=== PATIENT | female | born 1945 | race Caucasian/White ===

== ENCOUNTER 2023-12-28 09:47 | Outpatient (RCR) | payer MEDICARE, OTHER, SELFPAY | END 2023-12-28 23:59 | disposition home or self-care (01) | LOC: RPT 09:47 | PROVIDERS: ATTENDING PHYSICIAN Specialist; FAMILY PHYSICIAN Internal Medicine | DX: Z47.1 Aftercare following joint replacement surgery (principal); Z96.652 Presence of left artificial knee joint; Z73.6 Limitation of activities due to disability | CPT/HCPCS: 97110; 97112; 97140; 97162 ==

== ENCOUNTER 2024-01-13 09:54 | Outpatient (RCR) | payer MEDICARE, OTHER, SELFPAY | END 2024-01-13 23:59 | disposition home or self-care (01) | LOC: RPT 09:54 | PROVIDERS: ATTENDING PHYSICIAN Specialist; FAMILY PHYSICIAN Internal Medicine | DX: Z47.1 Aftercare following joint replacement surgery (principal); Z96.652 Presence of left artificial knee joint; Z73.6 Limitation of activities due to disability | CPT/HCPCS: 97110; 97112 ==

== ENCOUNTER → 2024-02-17 10:46 | Outpatient (REF) | payer MEDICARE, OTHER, SELFPAY ==
[2024-02-17 12:39] LABS: ALT (SGPT) 16 U/L (0-35); AST (SGOT) 32 U/L (14-36); Albumin 4.5 g/dl (3.5-5.0); Alkaline Phosphatase 119 U/L (38-126); Blood Urea Nitrogen 26 mg/dl (7-17); Calcium 9.5 mg/dl (8.4-10.2); Carbon Dioxide 25 mmol/L (22-30); Chloride 101 mmol/L (98-107); Glucose 87 mg/dl (70-99); Potassium 4.4 mmol/L (3.5-5.1); Sodium 137 mmol/L (135-145); Total Bilirubin 0.6 mg/dl (0.2-1.3); Total Protein 7.2 g/dl (6.3-8.2); eGFR > 60.00
[2024-02-17 12:55] LABS: Vitamin D, 25-OH*** 63.3 ng/mL (30-80)
== END ==
LOC: RAD 10:46
PROVIDERS: ATTENDING PHYSICIAN Internal Medicine; FAMILY PHYSICIAN Internal Medicine
DX: M81.0 Age-related osteoporosis without current pathological fracture (principal); E55.9 Vitamin D deficiency, unspecified
CPT/HCPCS: 36415; 77080; 80053; 82306

== ENCOUNTER 2024-07-23 15:44 | Inpatient (IN) | payer MEDICARE, OTHER, SELFPAY ==
[2024-07-23] VITALS (7 sets, daily range): BP systolic 107–166; BP diastolic 62–108; BMI 25.0
[2024-07-23 13:16] LABS: % Basophils 0.5 % (0-2); % Eosinophils 0.6 % (0-6); % Immature Granulocytes 0.5 % (0-0.5); % Monocytes 7.1 % (1.7-9.3); % Neutrophils 75.3 % (42.2-75.2); Absolute Basophils 0.1 10^3/uL (0-0.2); Absolute Eosinophils 0.1 10^3/uL (0-0.7); Absolute Immature Granulocytes 0.1 10^3/uL (0-0.05); Absolute Lymphocytes 1.5 10^3/uL (1.2-3.4); Absolute Monocytes 0.7 10^3/uL (0.1-0.6); Absolute Neutrophils 7.2 10^3/uL (1.4-6.5); Hematocrit 34.1 % (37.0-47.0); Hemoglobin 11.1 g/dL (12.0-16.0); Mean Corp Hgb Conc. 32.6 g/dL (33.0-37.0); Mean Corpuscular Volume 85.9 fL (81.0-99.0); Mean Platelet Volume 10.2 fL (7.4-10.4); Nucleated Red Blood Cells % 0 %; Platelet Count 247 10^3/uL (130-400); Red Blood Cell Count 3.97 10^6/uL (4.20-5.40); Red Cell Dist. Width 13.4 % (11.5-14.5); White Blood Cell Count 9.5 10^3/uL (4.8-10.8)
[2024-07-23 13:43] LABS: ALT (SGPT) 18 U/L (0-35); AST (SGOT) 29 U/L (14-36); Albumin 4.5 g/dl (3.5-5.0); Alkaline Phosphatase 108 U/L (38-126); Blood Urea Nitrogen 35 mg/dl (7-17); Calcium 9.4 mg/dl (8.4-10.2); Carbon Dioxide 22 mmol/L (22-30); Chloride 105 mmol/L (98-107); Glucose 117 mg/dl (70-99); Potassium 4.6 mmol/L (3.5-5.1); Sodium 141 mmol/L (135-145); Total Bilirubin 0.5 mg/dl (0.2-1.3); Total Protein 7.1 g/dl (6.3-8.2); eGFR 58.02
[2024-07-23] MEDS: TORADOL 15 MG IV (13:59)
--- NOTE | 2024-07-23 13:59 | ED.GENMED ---
History of Present Illness
General
Chief Complaint: Fall
Source: patient and family
Time Seen by Provider: 07/23/24 12:50
History of Present Illness
History of Present Illness:
78-year-old female presents after she tripped and fell and a friend's house down a single step that she did not see. Patient complains of right hip pain. She is unable to stand. Denies head injury. No neck or back pain. Denies chest pain. No
loss of consciousness.
Past History
Past History
ED Past Medical History: HTN, Hypercholesterolemia and Other (hypertension, hyperlipidemia, arthritic right knee)
ED Past Surgical History: Orthopedic
Social History
Tobacco: Non-smoker
Alcohol: None
Family History
Family History: Other (Father with coronary artery disease and diabetes. Mother with diabetes)
Phy Exam
Physical Exam
Physical Exam:
CONSTITUTIONAL Vital signs reviewed, Patient alert and oriented to person, place and time. Well-appearing
HEAD atraumatic, normocephalic.
EYES eyelids normal to inspection, Extraocular muscles intact, Conjunctiva normal, Sclera normal.
NECK normal range of motion, Trachea midline, no jugular venous distention.
RESP no respiratory distress
BACK No obvious deformities
UPPER EXTREMITY Gross Range of motion normal, gross motor strength normal
LOWER EXTREMITY right lower extremity shortened. Swelling noted to the right greater trochanter region. There is moderate tenderness in the right groin. There is normal distal pulses. Unable to internally or externally rotate actively and has
pain with passive rotation. Unable to flex at the hip
NEURO Speech normal, No focal motor deficits include, Primo coma scale 15, Memory normal, Cranial Nerves intact to screening exam.
SKIN Skin warm, dry, and normal in color.
PSYCHIATRIC Patient oriented to person place and time, Normal affect.
Course
Orders/Labs/Results
Orders:
Orders
07/23/24 12:37
CR Hip - RT w/wo Pel 2-3 Vw* Stat
Comment:
Reason For Exam: fall
Include a pelvis x-ray?: Yes
07/23/24 13:11
Complete Blood Count/With Diff Urgent
Comprehensive Metabolic Panel Urgent
07/23/24 13:57
Ketorolac [Toradol] 15 mg IV NOW STA
Abnormal Lab Results
07/23/24
13:11
RBC 3.97 L 10^6/uL
(4.20-5.40)
Hgb 11.1 L g/dL
(12.0-16.0)
Hct 34.1 L %
(37.0-47.0)
MCHC 32.6 L g/dL
(33.0-37.0)
Abs Immat Gran (auto) 0.1 H 10^3/uL
(0-0.05)
Absolute Neuts (auto) 7.2 H 10^3/uL
(1.4-6.5)
Absolute Monos (auto) 0.7 H 10^3/uL
(0.1-0.6)
Neutrophils % 75.3 H %
(42.2-75.2)
Lymphocytes % 16.0 L %
(20.5-51.1)
BUN 35 H mg/dl
(7-17)
Glucose 117 H mg/dl
(70-99)
07/23/24 13:11
07/23/24 13:11
Vital Signs
Initial and Last Documented VS:
Initial Vital Signs
BP
166/88
07/23/24 12:30
Last Documented Vital Signs
Temp Pulse Resp BP Pulse Ox
98.3 F 90 18 134/108 97
07/23/24 12:47 07/23/24 12:47 07/23/24 12:47 07/23/24 13:00 07/23/24 13:30
MDM/Problems Addressed
MDM/Problems Addressed:
Intertrochanteric fracture
*Radiology
Radiology exam reviewed: preliminary read by ED provider (Comminuted intertrochanteric fracture)
*Pulse Oximetry
Patient hypoxic: no
*Critical Care Note
Total Time (30-74mins, 75-104mins- exclusive of procedures): Not Applicable
Data Reviewed
Source: patient
Further Testing Considered But Not Given:
Consider head CT but no obvious signs of head injury and patient denies
Patient Management
Discussion with other providers: Hospitalist and Biotechnician (Case discussed with orthopedic)
Escalation/DeEscalation of care consider admission/obs:
78-year-old female presents after fall. Right intertrochanteric fracture noted. Case discussed with orthopedics. Admit
ED Attending Note
-
Portions of this chart may have been created with voice recognition software.� Occasional wrong word or��sound alike� substitutions may have occurred due to the inherent limitations of voice recognition software.
Discharge Plan
Departure
Prescriptions:
No Action
simvastatin 20 MG tablet
20 mg PO QPM
cyanocobalamin (vitamin B-12) [Vitamin B-12] 1,000 mcg Tablet
1,000 mcg PO DAILY
vitamin E 400 unit Tablet
400 unit PO QPM
coQ10 (ubiquinol) 200 mg Capsule
200 mg PO DAILY
omega 3-dky-vzy-fish oil [Fish Oil] 1,000 mg (120 mg-180 mg) Capsule
1 cap PO DAILY
lisinopril-hydrochlorothiazide 20-25 mg Tablet
1 tab PO DAILY Qty: 0 0RF
tramadol 50 mg Tablet
50 mg PO Q6HPRN PRN (Reason: moderate pain)
Patient Comments:
09/29/23 filled on 09/21/23 #30
calcium carbonate [Calcium 600] 600 mg calcium (1,500 mg) Tablet
600 mg PO BID
acetaminophen [Tylenol Extra Strength] 500 MG tablet
1,000 mg PO TID
aspirin 325 mg Tablet
325 mg PO DAILY Qty: 30 0RF
oxycodone 5 mg Tablet
5 mg PO Q4HPRN PRN (Reason: moderate pain) Qty: 0 0RF
Referrals:
Be Calle MD [Family Provider] -
Interventions
Interventions:
*Risk Screen - Suicide Last Done: 07/23/24 12:34
*General Assessment Last Done: 07/23/24 12:47
*Neglect/Abuse Screening Last Done: 07/23/24 12:34
*ED COVID-19 Vaccine History Last Done: 07/23/24 12:47
ED-Musculoskeletal Assessment Last Done: 07/23/24 12:46
ED- Neurological Assessment Last Done: 07/23/24 12:31
ED-Skin Assessment Last Done: 07/23/24 12:31
Discharge Date and Time
Print Language: SRI LANKAN
--- NOTE | 2024-07-23 14:48 | HPS.HSE ---
Addendum entered and electronically signed by Bryan Hurtado MD 07/23/24 14:52:
Patient at low risk for postoperative cardiac complications.
Original Note:
Family Physician
-
Family Physician: Be Calle
Chief Complaint
-
fall
History of Present Illness
78-year-old female past medical history of hypertension, hypercholesteremia, arthritis presenting after a fall. She tripped and fell at a friend's house down a single step that she did not see. She complains of right hip pain. She is unable to
stand. Denies head injury. Denies neck or back pain.
Patient denies smoking or alcohol use.
Medical History
Past Medical History
Past Medical History: Reports Other (hypertension, hypercholesteremia, arthritis)
Past Surgical History: Reports None
Social History
Tobacco: Non-smoker
Alcohol: None
Drug: None
Family History
Family History: Not pertinent
Allergies / Home Medications
Allergies reflects when Allergies were last updated in [facility].
Home Medications with original date entered in [facility]
Allergy/Medication List:
Allergies
Allergy/AdvReac Type Severity Reaction Status Date / Time
No Known Allergies Allergy Verified 07/23/24 12:29
Home Medications
simvastatin 20 mg tablet 20 mg PO QPM High Cholesterol 11/09/18
coQ10 (ubiquinol) 200 mg capsule 200 mg PO DAILY Supplement 08/13/23
cyanocobalamin (vitamin B-12) 1,000 mcg tablet (Vitamin B-12) 1,000 mcg PO DAILY Supplement 08/13/23
omega 6-omc-rni-fish oil 1,000 mg (120 mg-180 mg) capsule (Fish Oil) 1 cap PO BID Supplement 08/13/23
lisinopril 20 mg-hydrochlorothiazide 25 mg tablet 1 tab PO DAILY #0 tabs 09/07/23
calcium carbonate (Calcium 600) 600 mg PO BID Supplement 09/29/23
alendronate 70 mg tablet 70 mg PO TH 07/23/24
aspirin 81 mg tablet,delayed release 81 mg PO QPM 07/23/24
vitamin E 268 mg (400 unit) capsule 268 mg PO QPM 07/23/24
Review of Systems
-
History Source: Patient
A 12 point ROS was completed and negative except as noted: Yes
Constitutional: Reports No Symptoms
EENT: Reports No Symptoms
Respiratory: Reports No Symptoms
Cardiac: Reports No Symptoms
Abdomen/GI: Reports No Symptoms
: Reports No Symptoms
Musculoskeletal: Reports No Symptoms
Skin: Reports No Symptoms
Neurological: Reports No Symptoms
Endocrine: Reports No Symptoms
Hematologic/Lymphatic: Reports No Symptoms
Psych: Reports No Symptoms
Physical Exam
Vital Signs
Vital Signs
Temp Pulse Resp BP Pulse Ox
98.3 F 90 18 134/108 97
07/23/24 12:47 07/23/24 12:47 07/23/24 12:47 07/23/24 13:00 07/23/24 13:30
Physical Exam
General: Well Developed, Well Nourished and No Apparent Distress
HEENT: NormoCephalic, Moist mucous membranes and Atraumatic
Respiratory: Clear
Cardiac: S1/S2 and Regular Rhythm; No Murmur or Rub
GI: Soft, Non Tender, Non Distended and Normal Bowel Sounds; No Organomegaly
Rectal: Deferred by Provider
Musculoskeletal: No Clubbing, No Cyanosis and No Edema
Skin: No Rash
Neuro: Nonfocal/grossly intact
Laboratory Results
-
07/23/24 13:11
07/23/24 13:11
Laboratory Results
Total Bilirubin 0.5 mg/dl (0.2-1.3) 07/23/24 13:11
AST 29 U/L (14-36) 07/23/24 13:11
ALT 18 U/L (0-35) 07/23/24 13:11
Alkaline Phosphatase 108 U/L (38-126) 07/23/24 13:11
Data Reviewed
-
Lab Data: Labs Reviewed by me
Old Records: Reviewed
Impression/Plan
-
IMPRESSION:
PLAN:
# Right hip fracture
-N.p.o. past midnight
-Tylenol, ketorolac for pain
-Ortho consulted
-Hold aspirin
Arthritis
Essential hypertension
-Continue lisinopril/hydrochlorothiazide
Hypercholesterolemia
-Continue statin
Osteoporosis
-Continue alendronate
Full code
DVT prophylaxis�SCDs
Regular diet
--- NOTE | 2024-07-23 17:04 | W.PN.UPDATE ---
Update Note
Progress Note Update
Patient had a near syncopal episode and became pale and diaphoretic. She was given 1 L of IV fluids with return to baseline. Likely vasovagal episode. Patient upgraded to telemetry.
--- NOTE | 2024-07-23 17:31 | PTCARENOTE ---
6515: Patient arrived to 2S. Full head to toe assessment completed. R leg externally rotated. Neurovascular check intact. Patient on RA with SpO2 greater than 92%. Purewick in place. Patient put on tele. Call zarate within reach and bed in lowest
position.
[2024-07-23] MEDS: LIPITOR 20 MG PO (18:08)
[2024-07-23] MEDS: VITAMIN E 400 UNITS PO (18:08)
[2024-07-23] MEDS: OSCAL CAL 500 500 MG PO (19:42)
[2024-07-23] MEDS: TYLENOL 650 MG PO (19:44)
[2024-07-23] MEDS: TORADOL 10 MG IV (21:31)
[2024-07-24] VITALS (17 sets, daily range): BP systolic 94–124; BP diastolic 46–75; PULSE 101; O2SAT 99
[2024-07-24] MEDS: TORADOL 10 MG IV ×2 (03:15→16:35)
[2024-07-24 07:01] LABS: ALT (SGPT) 16 U/L (0-35); AST (SGOT) 25 U/L (14-36); Albumin 3.6 g/dl (3.5-5.0); Alkaline Phosphatase 78 U/L (38-126); Blood Urea Nitrogen 39 mg/dl (7-17); Calcium 9.4 mg/dl (8.4-10.2); Carbon Dioxide 25 mmol/L (22-30); Chloride 104 mmol/L (98-107); Estimated Creatinine Clearance 42 ml/min; Glucose 105 mg/dl (70-99); Potassium 4.9 mmol/L (3.5-5.1); Sodium 139 mmol/L (135-145); Total Bilirubin 0.6 mg/dl (0.2-1.3); Total Protein 5.8 g/dl (6.3-8.2); eGFR 58.02
[2024-07-24 07:24] LABS: % Basophils 0.2 % (0-2); % Eosinophils 0.2 % (0-6); % Immature Granulocytes 0.7 % (0-0.5); % Monocytes 9.6 % (1.7-9.3); % Neutrophils 75.3 % (42.2-75.2); Absolute Immature Granulocytes 0.1 10^3/uL (0-0.05); Absolute Lymphocytes 1.4 10^3/uL (1.2-3.4); Absolute Neutrophils 7.7 10^3/uL (1.4-6.5); Hematocrit 23.5 % (37.0-47.0); Hemoglobin 7.6 g/dL (12.0-16.0); Mean Corp Hgb Conc. 32.3 g/dL (33.0-37.0); Mean Corpuscular Hgb 27.8 pg (27.0-31.0); Mean Corpuscular Volume 86.1 fL (81.0-99.0); Mean Platelet Volume 10.3 fL (7.4-10.4); Nucleated Red Blood Cells % 0 %; Platelet Count 180 10^3/uL (130-400); Red Blood Cell Count 2.73 10^6/uL (4.20-5.40); Red Cell Dist. Width 13.5 % (11.5-14.5); White Blood Cell Count 10.3 10^3/uL (4.8-10.8)
--- NOTE | 2024-07-24 07:35 | PTCARENOTE ---
Dr. Bird and Dr. Lindo made aware of patients hmg of 7.6 this AM. New orders placed. Hold OR time for today. Care ongoing at this time.
[2024-07-24 07:38] LABS: Hematocrit 24.3 % (37.0-47.0); Hemoglobin 7.7 g/dL (12.0-16.0)
[2024-07-24] MEDS: ZESTRIL PO (07:41)
[2024-07-24] MEDS: ORETIC PO (07:41)
[2024-07-24] MEDS: OSCAL CAL 500 500 MG PO ×2 (07:47→19:13)
[2024-07-24] MEDS: VITAMIN B-12 1000 MCG PO (07:47)
--- NOTE | 2024-07-24 08:10 | W.PN.HOSP.TC ---
Today's Communication/Plan
-
N.p.o.
Assessment / Plan
Assessment / Plan
Gen-AAOx3, NAD
HEENT-NC, AT, anicteric, clear oral mm
Neck-supple
CV-reg, no M, +S1/S2
Lungs-clear B/L
Abd-soft, NT, ND
Ext-no edema
Musculoskeletal-no cyanosis, clubbing
Skin-warm and dry
Neuro-grossly non-focal
Psych-calm, cooperative
Acute traumatic right proximal femur fracture -for surgery today. Etiology of fracture due to trauma from falling as well as underlying osteoporosis. Appears medically stable. Discussed with orthopedics. NPO. Continue analgesics.
Chronic anemia -suspect hemoglobin of 11 on admission was hemoconcentration. Hemoglobin came down with IV fluids. She denies any anemia symptoms. She denies any melena or hematochezia or bleeding. Is not on an anticoagulant. Hemoglobin was in
the 8 range in September/October 2023. Has not been checked since. Discussed with patient. I reviewed [facility] records.
Blood ordered on-call to the operating room.
Osteoporosis -on weekly alendronate.
Essential hypertension -stable.
Hyperlipidemia -on simvastatin.
Full code
Updated daughter on the phone.
Anticipated Discharge: > 48 hours
Subjective/Interval History
-
Date of Service: July 24, 2024
Patient seen and examined. No complaints.
Objective Data
-
Labs:
Laboratory Results
07/24/24 07/24/24
05:38 07:31
WBC 10.3
Hgb 7.6 L D 7.7 L
Hct 23.5 L 24.3 L
Plt Count 180 D
Sodium 139
Potassium 4.9
Chloride 104
Carbon Dioxide 25
BUN 39 H
Creatinine 1.0
Glucose 105 H
Calcium 9.4
Total Bilirubin 0.6
AST 25
ALT 16
Alkaline Phosphatase 78
Vital Signs:
Vital Signs
Temp Pulse Resp BP Pulse Ox
97.5 F 96 18 124/57 99
07/24/24 07:10 07/24/24 07:10 07/24/24 07:10 07/24/24 07:10 07/24/24 07:10
I&O
07/23/24 07/24/24 07/25/24
06:59 06:59 06:59
Intake Total 720 / 720
Balance 720 / 720
Review of Systems
-
History Source: Patient
All other systems: Reviewed and negative
--- NOTE | 2024-07-24 08:18 | CON.ORTHO ---
Consultation
-
Date/Time Consultation Requested: 1400 07/23/2024
Date/Time Consultation Performed: 0745 07/24/2024
Requesting Provider: Erlin Osborn
Performing Provider: Darius Lindo
Reason for Consultation: R hip fracture
Consultation - Orthopedics
History
Orthopedic Surgery Note
CC: Right hip pain
HPI: 78F presented to the emergency department after trip and fall. She landed on the right side and had sudden onset pain. She was unable to weight-bear. She was brought to the emergency department where x-rays showed an intertrochanteric hip
fracture. She denies pain in the other extremities.
PMH/PSH: HTN, HL, knee replacement
Medications: reviewed
Family History: Family history was reviewed. Noncontributory
Social history: Nonsmoker, no illicit drugs
Exam
General appearance: Pleasant. No acute distress.
Head: Normocephalic/atraumatic
Nose: No lesions or discharge.
Skin: No obvious rashes or open wounds
Lungs: No audible wheezing, no cough or sputum production
Musculoskeletal:
RLE:
skin intact without open wounds
fires ehl/fhl/ta/gs
sensation intact to light touch distally s/s/sp/dp/t
Toes wwp, 1+ DP
passive hip motion deferred due to known fracture
Imaging: Right hip and right femur x-rays show comminuted intertrochanteric proximal femur fracture. Joint space appears well-preserved about the hip. There is a right total knee arthroplasty without stems.
Assessment and plan: 78-year-old female with a right comminuted intertrochanteric proximal femur fracture after a fall sustained yesterday. We discussed treatment options and reviewed surgical treatment. We discussed the recovery process and risk
associated with her fracture surgery. All questions were answered and shared decision was to proceed with right hip ORIF with cephalomedullary nail. She was noted to have anemia this morning and will receive a blood transfusion prior to the
surgery. We will have blood on-call to the OR.
Allergies / Home Medications
Allergy/AdvReac Type Severity Reaction Status Date / Time
No Known Allergies Allergy Verified 07/23/24 12:29
�Medication �Instructions �Recorded
simvastatin 20 mg tablet 20 mg PO QPM High Cholesterol 11/09/18
coQ10 (ubiquinol) 200 mg capsule 200 mg PO DAILY Supplement 08/13/23
cyanocobalamin (vitamin B-12) 1,000 mcg PO DAILY Supplement 08/13/23
1,000 mcg tablet (Vitamin B-12)
omega 5-wmv-mhj-fish oil 1,000 mg 1 cap PO BID Supplement 08/13/23
(120 mg-180 mg) capsule (Fish Oil)
lisinopril 20 1 tab PO DAILY #0 tabs 09/07/23
mg-hydrochlorothiazide 25 mg tablet
calcium carbonate (Calcium 600) 600 mg PO BID Supplement 09/29/23
alendronate 70 mg tablet 70 mg PO TH 07/23/24
aspirin 81 mg tablet,delayed 81 mg PO QPM 07/23/24
release
vitamin E 268 mg (400 unit) capsule 268 mg PO QPM 07/23/24
Vital Signs / Lab Results
Temp Pulse Resp BP Pulse Ox
97.5 F 96 18 124/57 99
07/24/24 07:10 07/24/24 07:10 07/24/24 07:10 07/24/24 07:10 07/24/24 07:10
07/24/24 07:31
07/24/24 05:38
--- NOTE | 2024-07-24 10:55 | SUR.PHASEI ---
First unit of blood started in PACU with no signs or symptoms of a reaction. Pt taken back to OR with 1st unit hanging.
--- NOTE | 2024-07-24 12:38 | PTCARENOTE ---
0945: Patient to OR waiting room to receive 1 unit of RBC's by Manisha Sandoval RN
--- NOTE | 2024-07-24 13:09 | OR.RPT ---
Operative Report
Operative Report
Orthopaedic Surgery Operative Note
DATE OF OPERATION: 07/24/2024
PREOPERATIVE DIAGNOSIS: Intertrochanteric Hip Fracture, Right
POSTOPERATIVE DIAGNOSIS: Same
OPERATION PERFORMED: Right intertrochanteric hip fracture open reduction and internal fixation with cephalomedullary nail
SURGEON: Jose Lindo MD
ENDOSCOPE TECHNICIAN: NA
ANESTHESIA: General
COMPLICATIONS: None.
ESTIMATED BLOOD LOSS: 200 mL.
DRAINS: None
SPECIMEN: None
IMPLANTS:
Seymour Gamma Cephalomeduallary nail; 10 mm
Ana lag screw, 100 mm.
5.0mm distal interlocking screw x1
INDICATIONS FOR PROCEDURE
78F presented to the ED after a fall sustained one day ago. Xrays showed displaced intertrochantreric femur fracture. I discussed treatment options with the patient including nonoperative and operative treatments. We reviewed the natural history of
the problem, as well as the risks, benefits, and alternatives of various treatment options. Shared decision was to proceed with surgical treatment. The patient and family understood the risks including, but were not limited to, bleeding, infection,
failure to relieve pain, more pain than preop, damage to blood vessels and nerves, need for reoperation, mechanical failure of the implants, wound healing problems, stiffness, instability, blood clot, pulmonary embolism, myocardial infarction,
pneumonia, arrhythmia, CVA, and . All questions were answered, and informed consent was obtained.
PROCEDURE IN DETAIL: The patient was identified in the preoperative holding area. The operative limb was identified as the operative site and marked with my initials. The patient was transferred to the operating room. General anesthesia was
performed. The patient was transferred to the [facility] operative table. IV antibiotics and tranexamic acid were given. All bony prominences were well padded. The operative limb was prepped and draped in the usual sterile fashion.
We performed a surgical time-out. A 1.6mm (0.65'') yoan wire was placed in the distal femur, and traction bow was applied. This was well padded over the knee. 15lbs of skeletal traction was applied. The fracture was reduced with the aid of
flouroscopy. A small lateral incision was made, and a bone hook was used to aid reduction. The guide wire was placed over the medial aspect of the tip of the greater trochanter. The guide wire was advanced and checked for appropriate position on AP
and lateral. The pin guide wire was advanced to the level of the lesser trochanter. Incision was made about the wire. The opening reamer was used to open the starting point over the guide wire. The nail was then inserted over the guidewire down to
the appropriate depth. The guide wire was removed. The targeting guide was assembled, and a lateral incision was made for lag screw placement. A guide pin was advanced into the femoral head. Position was checked on AP and lateral. The length was
measured to be 108mm. The drill was set to the appropriate depth, and the lag screw path was drilled over the guide wire. The lag screw was then inserted into the femoral head just distal to the subchondral bone. The fracture was compressed. The
locking screw was then placed into the top of the nail. Skeletal traction was removed, and a single distal interlocking screw was placed into the static interolocking hole with through the targeting guide. Final fluoroscopy shots were performed
which showed appropriate position and length of the implant and anatomic reduction of the fracture.
The incisions were copiously irrigated with 3L normal saline. The deep fascial layers were closed with 0 PDS. The dermal layer closed with 2-0 PDS running. The skin was closed with 3-0 monocryl. Skin glue was applied as well as sterile dressings.
The patient was awoken from anesthesia without complication.
The patient awoke from anesthesia without difficulty. Sponge and instrument counts were correct x2 at the end of the case. I was present and participated in the entire procedure. The patient was sent to the recovery room in stable condition.
Post operative plan:
WBAT
PT/OT
Pain control
Delirium prevention
ABX: Ancef x24 hours
DVT: ASA 325 daily
Darius Lindo MD
--- NOTE | 2024-07-24 14:08 | PTCARENOTE ---
1400: Patient arrived back to 2S after R hip surgery. Assessment from AM remains unchanged. 2 aquacells on R hip clean dry and intact. 2 4x4 with tegaderm on medial and lateral R knee clean dry and intact. Neurovascular assessment completed. Patient
on RA with SpO2 greater than 92%. Call zarate within reach and bed in lowest position.
[2024-07-24] MEDS: ANCEF 5 IV (17:03)
[2024-07-24] MEDS: LIPITOR 20 MG PO (17:03)
[2024-07-24] MEDS: ASPIRIN 325 MG PO (17:03)
[2024-07-24] MEDS: VITAMIN E 400 UNITS PO (17:03)
[2024-07-24] MEDS: SENOKOT 17.2 MG PO (19:24)
[2024-07-24] MEDS: CELEBREX 100 MG PO (19:24)
[2024-07-24 20:34] LABS: Hematocrit 19.9 % (37.0-47.0); Hemoglobin 6.8 g/dL (12.0-16.0)
--- NOTE | 2024-07-24 21:30 | PTCARENOTE ---
Addendum entered by Vladislav Soliz RN 07/24/24 23:41:
1 unit of RBC transfused. CBC labs order in the AM per . Will continue w/ tx plan. VSS.
Original Note:
Pt daughter was inform of her mother having a Hgb of 6.8 and will be receiving a blood transfusion. Pt refused getting up as she been feeling weak and will like to get up with Pt/OT. She been using bedpan. VSS. Pt will receive a 1 Unit of RBC. LITIGATION LEGAL ASSISTANT
notified of labs.
[2024-07-25] VITALS (10 sets, daily range): BP systolic 104–157; BP diastolic 51–73; PULSE 103; O2SAT 98
[2024-07-25] MEDS: ANCEF 5 IV (01:49)
[2024-07-25 06:14] LABS: % Basophils 0.2 % (0-2); % Eosinophils 0.1 % (0-6); % Immature Granulocytes 0.5 % (0-0.5); % Lymphocytes 16.5 % (20.5-51.1); % Monocytes 10.8 % (1.7-9.3); % Neutrophils 71.9 % (42.2-75.2); Absolute Immature Granulocytes 0.1 10^3/uL (0-0.05); Absolute Lymphocytes 1.7 10^3/uL (1.2-3.4); Absolute Monocytes 1.1 10^3/uL (0.1-0.6); Absolute Neutrophils 7.6 10^3/uL (1.4-6.5); Hemoglobin 8.4 g/dL (12.0-16.0); Mean Corp Hgb Conc. 33.6 g/dL (33.0-37.0); Mean Corpuscular Volume 89.3 fL (81.0-99.0); Mean Platelet Volume 10.8 fL (7.4-10.4); Nucleated Red Blood Cells % 0 %; Platelet Count 137 10^3/uL (130-400); Red Cell Dist. Width 13.7 % (11.5-14.5); White Blood Cell Count 10.5 10^3/uL (4.8-10.8)
[2024-07-25] MEDS: ZESTRIL 20 MG PO (08:32)
[2024-07-25] MEDS: CELEBREX 100 MG PO ×2 (08:32→19:47)
[2024-07-25] MEDS: VITAMIN B-12 1000 MCG PO (08:32)
[2024-07-25] MEDS: OSCAL CAL 500 500 MG PO ×2 (08:32→19:47)
[2024-07-25] MEDS: SENOKOT 17.2 MG PO ×2 (08:32→19:46)
[2024-07-25] MEDS: ASPIRIN 325 MG PO (08:32)
[2024-07-25] MEDS: ORETIC 25 MG PO (08:32)
--- NOTE | 2024-07-25 09:17 | W.PN.ORTHO ---
Today's Communication / Plan
-
Appreciate efforts of the primary medical team, continue treatment
Hgb 8.4 today. Received 2 units PRBCs yesterday, will trend
Appreciate CM assistance with dispo
Continue WBAT B/L LEs on walker
PT/OT
ASA 325mg daily x 4 weeks for DVT ppx, or per primary team
Dressings to remain 2 weeks
Outpatient follow-up [address] Lindo's team
Assessment
.
Distal Motor Intact: Yes
Dressing:
Clean, dry and intact. Aquacel and gauze dressing right thigh in place
Assessment:
Right hip gamma
Overall doing/feeling well
Calf soft, nontender
Plan
.
Surgery / Date: Right hip gamma nail Jul 26 ([facility])
DVT Prophylaxis: Aspirin
Activity:
Out of bed. WBAT RLE
PT/OT
Discharge Plan: Other (Per CM)
Subjective
.
.:
Patient resting comfortably in bed this morning. Endorses very minimal pain to the right hip
Vital Signs and Labs
.
Vital Signs and Labs:
Lab Results
07/25/24 04:46
07/24/24 05:38
Temp Pulse Resp BP Pulse Ox
98.4 F 92 16 126/62 98
07/25/24 07:12 07/25/24 08:32 07/25/24 07:12 07/25/24 08:32 07/25/24 07:12
--- NOTE | 2024-07-25 09:25 | PTCARENOTE ---
Called to room by physical and occupational therapists. Patient noted to be in chair initially; Per therapists patient stated she felt 'breezy' and then appeared to have a vagal episode; Patient transferred from chair to bed with assistance of staff
members; Blood pressure 157/73, HR 105; Patient states her symptoms have now resolved; Patient denies N/V, chest pain, and/or shortness of breath; Orthopedic REY Dugan and Dr. Chand made aware; Bed in lowest position, wheels locked; Call
zarate within reach; Assessment ongoing
--- NOTE | 2024-07-25 10:56 | CM ---
Addendum entered by Claudia Avalos 07/25/24 11:16:
Spoke with pts daughter Rosina. Updated regarding PT/OT recs and pts preference. Reports pt [facility]
Original Note:
Met with pt at bedside
Pt reports lived alone in a multi-story home
Independent at baseline, driving, active at baseline
DME - rolling walker, cane, raised toilet seat
SNF - no hx
HH - [facility] in past
Has ride at d/c
PCP - Be Calle
Pharm - [facility]
Discussed discharge plan with pt - prefers home with [facility]. Would either stay with her daughter with HH or her daughter would stay with her with HH. Declining SNF.
Plan - home with HH - prefers [facility]
--- NOTE | 2024-07-25 13:34 | PN.CDI ---
CDI
- -
CDI:
Physician Documentation Request
Admit Date: 07/23/24 15:44
Dear Doctor Guicho,
Patient admitted for right hip fracture.
07/24 Hospitalist PN: 'Chronic anemia -suspect hemoglobin of 11 on admission was hemoconcentration. Hemoglobin came down with IV fluids.'
07/24 Operative Note: 'ESTIMATED BLOOD LOSS: 200 mL.'
07/25 Orthopedics PN: 'Hgb 8.4 today. Received 2 units PRBCs yesterday, will trend'
Laboratory Tests
07/23/24 07/24/24 07/24/24
13:11 05:38 20:09
Hgb 11.1 L 7.6 L D 6.8 L*
Based on the above, could you clarify in the progress notes, the appropriate diagnosis, if significant, that supports the above abnormalities and additional evaluation, monitoring and/or treatment rendered:
Acute blood loss anemia on chronic anemia
Acute blood loss anemia
Chronic anemia
Other
Use of terms such as suspected, likely, concern for, or probable (associated with a specific diagnosis that is being evaluated, monitored, or treated as if it exists) are acceptable and can be coded in the inpatient setting, when documented at the
time of discharge.
Thank you,
Shahida Tiwari RN, BSN
CDI Specialist
Available via [employer] text
Please use your independent medical judgment in providing your response.
--- NOTE | 2024-07-25 13:53 | W.PN.HOSP.TC ---
Today's Communication/Plan
-
monitor cbc, transfuse as necessary
pt/ot
dvt ppx
Assessment / Plan
Assessment / Plan
Gen-AAOx3, NAD
HEENT-NC, AT, anicteric, clear oral mm
Neck-supple
CV-reg, no M, +S1/S2
Lungs-clear B/L
Abd-soft, NT, ND
Ext-no edema
Musculoskeletal-no cyanosis, clubbing
Skin-warm and dry; Clean, dry and intact. Aquacel and gauze dressing right thigh in place
Neuro-grossly non-focal
Psych-calm, cooperative
Acute traumatic right proximal femur fracture
-Right hip gamma nail Jul 26 ([facility])
-received 2u pre-op
Continue WBAT B/L LEs on walker
PT/OT
ASA 325mg daily x 4 weeks for DVT ppx, or per primary team
Dressings to remain 2 weeks
Outpatient follow-up [address] Lindo's team
#Acute on chronic Anemia
#possible hemodilution v acute blood loss anemia
-monitor hgb post op
-transfuse for hgb ? 7
-monitor cbc
Osteoporosis -on weekly alendronate.
Essential hypertension -stable.
Hyperlipidemia -on simvastatin.
Full code
Anticipated Discharge: Within 24 hours
Subjective/Interval History
-
Date of Service: July 25, 2024
71 lightheaded during ambulation today, normotensive
Objective Data
-
Labs:
Laboratory Results
07/25/24
04:46
WBC 10.5
Hgb 8.4 L D
Hct 25.0 L
Plt Count 137 D
Vital Signs:
Vital Signs
Temp Pulse Resp BP Pulse Ox
98.7 F 93 15 111/51 100
07/25/24 11:07 07/25/24 11:07 07/25/24 11:07 07/25/24 11:07 07/25/24 11:07
I&O
07/24/24 07/25/24 07/26/24
06:59 06:59 06:59
Intake Total 720 / 720 1190 / 1190
Balance 720 / 720 1190 / 1190
Review of Systems
-
History Source: Patient
All other systems: Not reviewed unless documented
Data Reviewed
-
Total Time Spent with Patient (in minutes): 45
Diagnostic Radiology: Image personally visualized and interpreted and Report Reviewed by me
Labs: Labs Reviewed by me
[2024-07-25] MEDS: LIPITOR 20 MG PO (17:09)
[2024-07-25] MEDS: VITAMIN E 400 UNITS PO (17:09)
[2024-07-26] VITALS (8 sets, daily range): BP systolic 100–140; BP diastolic 54–81; PULSE 109–141; O2SAT 98
--- NOTE | 2024-07-26 07:08 | W.PN.ORTHO ---
Today's Communication / Plan
-
POD#2 right CMN under the direction of Dr. Lindo
--WBAT RLE. Ambulate with assistive device
--PT/OT
--Continue with pain control as needed
--Hemoglobin pending this AM. Continue to monitor
--Aspirin 325mg daily x4 weeks for DVT prophylaxis, or per primary team
--Surgical dressings to remain in place for 2 weeks
--Case management consult for discharge planning
--Outpatient follow up in [address] Lindo's team
Assessment
.
Distal Motor Intact: Yes
Dressing:
Clean, dry and intact.
Plan
.
Surgery / Date: Right hip gamma nail Jul 26 ([facility])
DVT Prophylaxis: Aspirin
Activity:
Out of bed.
PT/OT
Subjective
.
.:
Patient resting comfortably in bed this morning. She did have a vasovagal episode yesterday. She reports that she has not been out of bed since then
Vital Signs and Labs
.
Vital Signs and Labs:
Temp Pulse Resp BP Pulse Ox
98.7 F 99 18 102/60 94
07/26/24 03:19 07/26/24 03:19 07/26/24 03:19 07/26/24 03:19 07/26/24 03:19
Physical Exam
-
Directed exam of right hip reveals surgical dressings in place and clean, dry, and intact. Mild expected edema to the lateral hip. Thigh is soft and compressible. Able to plantarflex and dorsiflex the ankle. Calf soft and nontender. NVI distally
[2024-07-26 07:58] LABS: Hematocrit 22.5 % (37.0-47.0); Hemoglobin 7.5 g/dL (12.0-16.0); Mean Corp Hgb Conc. 33.3 g/dL (33.0-37.0); Mean Corpuscular Hgb 29.2 pg (27.0-31.0); Mean Corpuscular Volume 87.5 fL (81.0-99.0); Mean Platelet Volume 10.9 fL (7.4-10.4); Platelet Count 154 10^3/uL (130-400); Red Blood Cell Count 2.57 10^6/uL (4.20-5.40); White Blood Cell Count 8.8 10^3/uL (4.8-10.8)
[2024-07-26] MEDS: ASPIRIN 325 MG PO (07:58)
[2024-07-26] MEDS: VITAMIN B-12 1000 MCG PO (07:59)
[2024-07-26] MEDS: OSCAL CAL 500 500 MG PO ×2 (07:59→20:11)
[2024-07-26] MEDS: ZESTRIL 20 MG PO (07:59)
[2024-07-26] MEDS: CELEBREX 100 MG PO ×2 (07:59→20:10)
[2024-07-26] MEDS: ORETIC 25 MG PO (07:59)
[2024-07-26] MEDS: SENOKOT 17.2 MG PO ×2 (07:59→20:10)
[2024-07-26 08:47] LABS: Blood Urea Nitrogen 27 mg/dl (7-17); Calcium 8.3 mg/dl (8.4-10.2); Carbon Dioxide 23 mmol/L (22-30); Chloride 104 mmol/L (98-107); Estimated Creatinine Clearance 47 ml/min; Glucose 99 mg/dl (70-99); Potassium 4.6 mmol/L (3.5-5.1); Sodium 140 mmol/L (135-145); eGFR > 60.00
--- NOTE | 2024-07-26 13:43 | W.PN.HOSP.TC ---
Today's Communication/Plan
-
pt/ot
monitor cbc
Assessment / Plan
Assessment / Plan
Gen-AAOx3, NAD
HEENT-NC, AT, anicteric, clear oral mm
Neck-supple
CV-reg, no M, +S1/S2
Lungs-clear B/L
Abd-soft, NT, ND
Ext-no edema
Musculoskeletal-no cyanosis, clubbing
Skin-warm and dry; Clean, dry and intact. Aquacel and gauze dressing right thigh in place
Neuro-grossly non-focal
Psych-calm, cooperative
Acute traumatic right proximal femur fracture
-Right hip gamma nail Jul 26 ([facility])
-received 2u pre-op
Continue WBAT B/L LEs on walker
PT/OT
ASA 325mg daily x 4 weeks for DVT ppx, or per primary team
Dressings to remain 2 weeks
Outpatient follow-up [address] Lindo's team
#Acute on chronic Anemia
#possible hemodilution v acute blood loss anemia
-monitor hgb post op
-transfuse for hgb < 7
-monitor cbc
Osteoporosis -on weekly alendronate.
Essential hypertension -stable.
Hyperlipidemia -on simvastatin.
Full code
Anticipated Discharge: Within 24 hours
Subjective/Interval History
-
Date of Service: July 26, 2024
no acute events
Objective Data
-
Labs:
Laboratory Results
07/26/24
04:54
WBC 8.8
Hgb 7.5 L
Hct 22.5 L
Plt Count 154
Sodium 140
Potassium 4.6
Chloride 104
Carbon Dioxide 23
BUN 27 H
Creatinine 0.9
Glucose 99
Calcium 8.3 L
Vital Signs:
Vital Signs
Temp Pulse Resp BP Pulse Ox
98.8 F 96 17 125/63 98
07/26/24 11:15 07/26/24 11:15 07/26/24 11:15 07/26/24 11:15 07/26/24 11:15
I&O
07/25/24 07/26/24 07/27/24
06:59 06:59 06:59
Intake Total 1190 / 1190 1080 / 1080
Output Total 1000 / 1000
Balance 1190 / 1190 80 / 80
Review of Systems
-
History Source: Patient
All other systems: Not reviewed unless documented
Data Reviewed
-
Total Time Spent with Patient (in minutes): 45
Diagnostic Radiology: Image personally visualized and interpreted and Report Reviewed by me
Labs: Labs Reviewed by me
[2024-07-26] MEDS: LR 1000 IV (15:16)
[2024-07-26] MEDS: LIPITOR 20 MG PO (17:01)
[2024-07-26] MEDS: VITAMIN E 400 UNITS PO (17:01)
[2024-07-27] VITALS (9 sets, daily range): BP systolic 113–152; BP diastolic 58–80; PULSE 114–130; O2SAT 98
[2024-07-27 06:37] LABS: Hematocrit 22.1 % (37.0-47.0); Hemoglobin 7.2 g/dL (12.0-16.0); Mean Corp Hgb Conc. 32.6 g/dL (33.0-37.0); Mean Corpuscular Volume 89.1 fL (81.0-99.0); Platelet Count 174 10^3/uL (130-400); Red Blood Cell Count 2.48 10^6/uL (4.20-5.40); Red Cell Dist. Width 13.9 % (11.5-14.5); White Blood Cell Count 8.2 10^3/uL (4.8-10.8)
[2024-07-27] MEDS: ORETIC PO (08:21)
[2024-07-27] MEDS: ASPIRIN 325 MG PO (08:23)
[2024-07-27] MEDS: ZESTRIL 20 MG PO (08:23)
[2024-07-27] MEDS: VITAMIN B-12 1000 MCG PO (08:23)
[2024-07-27] MEDS: OSCAL CAL 500 500 MG PO ×2 (08:23→19:44)
[2024-07-27] MEDS: SENOKOT 17.2 MG PO ×2 (08:23→19:45)
[2024-07-27] MEDS: CELEBREX 100 MG PO ×2 (08:23→19:44)
--- NOTE | 2024-07-27 09:10 | W.PN.UPDATE ---
Update Note
Progress Note Update
Ms. Bella is POD3 following her right cephalomedullary nail under the direction of Dr. Lindo. She is resting comfortably in bed this morning. She endorses aching pain pain about the hip, but overall reports she is moving in the right direction.
Directed exam of the right lower extremity reveals surgical dressings clean, dry and intact. Expected post-operative edema throughout the right lower extremity. Thigh soft and compressible. Calf soft and nontender. Patient able to wiggle toes,
plantar and dorsiflex ankle. Neurovascularly intact distally. VSS.
Hgb 7.2 this AM.
POD#3 right CMN under the direction of Dr. Lindo
--WBAT RLE. Ambulate with assistive device. We appreciate the assistance of PT/OT.
--Continue with pain control as needed.
--Hemoglobin 7.2 this AM. Continue to monitor
--Aspirin 325mg daily x4 weeks for DVT prophylaxis, or per primary team.
--Surgical dressings to remain in place for 2 weeks.
--Case management consult for discharge planning.
--Outpatient follow up in [address] Lindo's team.
--Patient stable post-operatively from an orthopedic standpoint. Orthopedics will sign off for now. Please reach out with any additional questions or concerns.
--- NOTE | 2024-07-27 11:31 | CM ---
Addendum entered by Claudia Avalos 07/27/24 14:43:
Spoke with pt regarding SNF choices
[facility] as 1st choice, [facility]
Referrals sent in [facility]
Plan - anticipate SNF at discharge
Original Note:
Case management following for discharge planning
Chart reviewed. Met with pt and her daughter Rosina at bedside
Discussed dispo with pt and daughter - PT/OT recs - SNF
Discussed pros and cons of both SNF/HH
Pt and daughter agreeing SNF would be better at d/c
Given list of SNF choices for pt and daughter to review - CM will obtain choices after review
Plan - anticipate SNF at discharge
[2024-07-27] MEDS: LR 1000 IV (11:41)
--- NOTE | 2024-07-27 13:28 | W.PN.HOSP.TC ---
Today's Communication/Plan
-
monitor cbc
lr bolus
hold hctz
Assessment / Plan
Assessment / Plan
Gen-AAOx3, NAD
HEENT-NC, AT, anicteric, clear oral mm
Neck-supple
CV-reg, no M, +S1/S2
Lungs-clear B/L
Abd-soft, NT, ND
Ext-no edema
Musculoskeletal-no cyanosis, clubbing
Skin-warm and dry; Clean, dry and intact. Aquacel and gauze dressing right thigh in place
Neuro-grossly non-focal
Psych-calm, cooperative
Acute traumatic right proximal femur fracture
-Right hip gamma nail Jul 26 ([facility])
-received 2u pre-op
Continue WBAT B/L LEs on walker
PT/OT
ASA 325mg daily x 4 weeks for DVT ppx, or per primary team
Dressings to remain 2 weeks
Outpatient follow-up [address] Lindo's team
#Acute on chronic Anemia
#possible hemodilution v acute blood loss anemia
-monitor hgb post op
-transfuse for hgb < 7
-monitor cbc
#Orthostatic hypotension
-hold hctz
-lr bolus
-monitor
Osteoporosis -on weekly alendronate.
Essential hypertension -stable.
Hyperlipidemia -on simvastatin.
Full code
Anticipated Discharge: 24 - 48 hours
Subjective/Interval History
-
Date of Service: July 27, 2024
still orthostatic, hgb drop
Objective Data
-
Labs:
Laboratory Results
07/27/24
06:26
WBC 8.2
Hgb 7.2 L
Hct 22.1 L
Plt Count 174
Vital Signs:
Vital Signs
Temp Pulse Resp BP Pulse Ox
99.3 F 99 18 152/71 93
07/27/24 11:45 07/27/24 11:45 07/27/24 11:45 07/27/24 11:45 07/27/24 11:45
I&O
07/26/24 07/27/24 07/28/24
06:59 06:59 06:59
Intake Total 1080 / 1080 1200 / 1200
Output Total 1000 / 1000
Balance 80 / 80 1200 / 1200
Review of Systems
-
History Source: Patient
All other systems: Not reviewed unless documented
Physical Exam
-
General: Well Developed
HEENT: Normocephalic
Respiratory: Clear to Auscultation
Cardiac: Regular Rhythm
GI: Soft, Nontender and Nondistended
Musculoskeletal: Edema, Left Lower Extrem (Ecchymotic areas Steri-Strips MARIBEL stockings in place)
Psych: Calm
Data Reviewed
-
Total Time Spent with Patient (in minutes): 45
Diagnostic Radiology: Image personally visualized and interpreted and Report Reviewed by me
Labs: Labs Reviewed by me
[2024-07-27] MEDS: LIPITOR 20 MG PO (17:09)
[2024-07-27] MEDS: VITAMIN E 400 UNITS PO (17:09)
[2024-07-28] VITALS (9 sets, daily range): BP systolic 115–148; BP diastolic 51–76; PULSE 95–143
[2024-07-28] MEDS: OSCAL CAL 500 500 MG PO ×2 (08:41→19:55)
[2024-07-28] MEDS: SENOKOT 17.2 MG PO ×2 (08:41→19:54)
[2024-07-28] MEDS: CELEBREX 100 MG PO ×2 (08:41→19:55)
[2024-07-28] MEDS: ASPIRIN 325 MG PO (08:41)
[2024-07-28] MEDS: ZESTRIL 20 MG PO (08:41)
[2024-07-28] MEDS: VITAMIN B-12 1000 MCG PO (08:42)
--- NOTE | 2024-07-28 09:01 | PTCARENOTE ---
While administering medications to patient this AM, patient informed RN that she took her own Fosamax that her daughter brought in for her. She said she did not realize we would have it. Patient reassured RN that she did not have any other
medications with her from home. RN explained to patient that any medications from home need to be approved by pharmacy before being administered. Patient stated she understood. Dr. Chand made aware.
[2024-07-28 10:00] LABS: Hematocrit 24.2 % (37.0-47.0); Hemoglobin 7.7 g/dL (12.0-16.0); Mean Corp Hgb Conc. 31.8 g/dL (33.0-37.0); Mean Corpuscular Hgb 29.1 pg (27.0-31.0); Mean Corpuscular Volume 91.3 fL (81.0-99.0); Mean Platelet Volume 9.9 fL (7.4-10.4); Platelet Count 244 10^3/uL (130-400); Red Blood Cell Count 2.65 10^6/uL (4.20-5.40); Red Cell Dist. Width 14.5 % (11.5-14.5); White Blood Cell Count 9.1 10^3/uL (4.8-10.8)
[2024-07-28 10:16] LABS: Blood Urea Nitrogen 22 mg/dl (7-17); Calcium 9.1 mg/dl (8.4-10.2); Carbon Dioxide 27 mmol/L (22-30); Chloride 102 mmol/L (98-107); Estimated Creatinine Clearance 47 ml/min; Glucose 126 mg/dl (70-99); Potassium 4.2 mmol/L (3.5-5.1); Sodium 140 mmol/L (135-145); eGFR > 60.00
--- NOTE | 2024-07-28 11:42 | CM ---
Addendum entered by Claudia Avalos 07/28/24 15:57:
Discharge cx for today. [facility] at [facility] made aware
Addendum entered by Claudia Avalos 07/28/24 14:32:
Spoke with pts daughter Rosina regarding discharge - had many questions. TT sent to hospitalist requesting phone call to daughter for update
Original Note:
Pt medically ready for discharge
[facility] accept
Pt prefers [facility] - [facility] aware
Discussed with pt
Discussed IMM
Plan - transfer to [facility] SN[facility]
R - [phone]
F - [phone]
--- NOTE | 2024-07-28 11:44 | W.PN.HOSP.TC ---
Addendum entered and electronically signed by Jonathon Chand MD 07/28/24 13:06:
f/u iron labs for anemia - will need gi/pcp outpatient f/u. if iron def - will start iron tabs
Original Note:
Today's Communication/Plan
-
received 2u pre-op
Continue WBAT B/L LEs on walker
PT/OT
ASA 325mg daily x 4 weeks for DVT ppx, then 81mg daily thereafter
Dressings to remain 2 weeks
Outpatient follow-up [address] Lindo's team
Monitor CBC in 2-3 days
Assessment / Plan
Assessment / Plan
Gen-AAOx3, NAD
HEENT-NC, AT, anicteric, clear oral mm
Neck-supple
CV-reg, no M, +S1/S2
Lungs-clear B/L
Abd-soft, NT, ND
Ext-no edema
Musculoskeletal-no cyanosis, clubbing
Skin-warm and dry; Clean, dry and intact. Aquacel and gauze dressing right thigh in place
Neuro-grossly non-focal
Psych-calm, cooperative
Acute traumatic right proximal femur fracture
-Right hip gamma nail Jul 26 ([facility])
-received 2u pre-op
Continue WBAT B/L LEs on walker
PT/OT
ASA 325mg daily x 4 weeks for DVT ppx, then 81mg daily thereafter
Dressings to remain 2 weeks
Outpatient follow-up [address] Lindo's team
#Acute on chronic Anemia
#possible hemodilution v acute blood loss anemia
-monitor hgb post op - stable
-transfuse for hgb < 7
-monitor cbc in 2-3 days
#Orthostatic hypotension
most likely hypovolemic
IVF PRN
-resolved with resuscitation
-monitor outpatient
Osteoporosis -on weekly alendronate.
Essential hypertension -stable.
Hyperlipidemia -on simvastatin.
Full code
More than 30 minutes spent in discharge including
Final examination of the patient
Summarizing hospital stay
Instructions for continuing care to all relevant caregivers
Preparation of discharge records, prescriptions, and referral forms
Total time spent (35 in minutes):
Anticipated Discharge: Today
Subjective/Interval History
-
Date of Service: July 28, 2024
orthostatics negative
hgb stable
Objective Data
-
Labs:
Laboratory Results
07/28/24
09:24
WBC 9.1
Hgb 7.7 L
Hct 24.2 L
Plt Count 244 D
Sodium 140
Potassium 4.2
Chloride 102
Carbon Dioxide 27
BUN 22 H
Creatinine 0.9
Glucose 126 H
Calcium 9.1
Vital Signs:
Vital Signs
Temp Pulse Resp BP Pulse Ox
98.6 F 92 17 130/67 98
07/28/24 11:19 07/28/24 11:19 07/28/24 11:19 07/28/24 11:19 07/28/24 11:19
I&O
07/27/24 07/28/24 07/29/24
06:59 06:59 06:59
Intake Total 1200 / 1200 2680 / 2680
Balance 1200 / 1200 2680 / 2680
Review of Systems
-
History Source: Patient
All other systems: Not reviewed unless documented
Physical Exam
-
General: Well Developed
HEENT: Normocephalic
Respiratory: Clear to Auscultation
Cardiac: Regular Rhythm
GI: Soft, Nontender and Nondistended
Musculoskeletal: Edema, Left Lower Extrem (Ecchymotic areas Steri-Strips MARIBEL stockings in place)
Psych: Calm
Data Reviewed
-
Total Time Spent with Patient (in minutes): 45
Diagnostic Radiology: Image personally visualized and interpreted and Report Reviewed by me
Labs: Labs Reviewed by me
--- NOTE | 2024-07-28 11:49 | W.DS.TRANS ---
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
-
Discharge Instructions:
Discharge Diagnosis/Procedures Acute traumatic right proximal femur fracture
#Acute on chronic Anemia
Orthostatic hypotension
Diet Low Cholesterol,Low Fat
Activity As tolerated,With Walker
Blood Work cbc in 2-3 days
Instructions:
Stand-Alone Forms:
Changes to Home Medications: Yes
Discharge Medications:
DC Medications w/original date entered in [employer]
simvastatin 20 mg tablet 20 mg PO QPM High Cholesterol 11/09/18
coQ10 (ubiquinol) 200 mg capsule 200 mg PO DAILY Supplement 08/13/23
cyanocobalamin (vitamin B-12) 1,000 mcg tablet (Vitamin B-12) 1,000 mcg PO DAILY Supplement 08/13/23
omega 1-sjy-dex-fish oil 1,000 mg (120 mg-180 mg) capsule (Fish Oil) 1 cap PO BID Supplement 08/13/23
lisinopril 20 mg-hydrochlorothiazide 25 mg tablet 1 tab PO DAILY #0 tabs 09/07/23
calcium carbonate (Calcium 600) 600 mg PO BID Supplement 09/29/23
alendronate 70 mg tablet 70 mg PO TH OSTEOPEROSIS 07/23/24
aspirin 81 mg tablet,delayed release 81 mg PO QPM Blood Clot Prevention/Tx 07/23/24
vitamin E 268 mg (400 unit) capsule 268 mg PO QPM Supplement 07/23/24
aspirin 325 mg tablet 325 mg PO DAILY #60 tabs 07/28/24
celecoxib 100 mg capsule 100 mg PO BID PRN Pain #0 caps 07/28/24
Home Medication Changes
aspirin 325 mg tablet 325 mg PO DAILY #60 tabs 07/28/24
celecoxib 100 mg capsule 100 mg PO BID PRN Pain #0 caps 07/28/24
Pending Results: No
[2024-07-28 13:37] LABS: Iron 107 ug/dl (37-170)
[2024-07-28 13:47] LABS: Percent Saturation 29 % (20-50); Total Iron Binding Capacity 357 ug/dl (265-497)
[2024-07-28 14:42] LABS: Ferritin 31.2 ng/ml (11.1-264.0)
--- NOTE | 2024-07-28 15:13 | PTCARENOTE ---
Around [address] at 110-120 on tele monitor. Assessed patient. Patient denied chest pain. Patient stated she was anxious about leaving and felt she was not ready to leave. Denied pain. Dr. Chand made aware. EKG obtained. Discharge
cancelled. Physical therapy reported to RN that while working with patient her HR went into the 140's, but went back down to the 120's at rest. Dr. Chand made aware. Fluid bolus ordered. Patient HR at rest currently is 91. Will administer fluid
bolus as ordered once verified by pharmacy. Will continue to monitor.
[2024-07-28] MEDS: LR 1000 IV (17:04)
[2024-07-28] MEDS: LIPITOR 20 MG PO (17:10)
[2024-07-28] MEDS: VITAMIN E 400 UNITS PO (17:10)
[2024-07-29 03:07] VITALS: BP 116/59
[2024-07-29 06:21] LABS: Hematocrit 22.2 % (37.0-47.0); Hemoglobin 7.2 g/dL (12.0-16.0); Mean Corp Hgb Conc. 32.4 g/dL (33.0-37.0); Mean Corpuscular Hgb 30.1 pg (27.0-31.0); Mean Corpuscular Volume 92.9 fL (81.0-99.0); Platelet Count 229 10^3/uL (130-400); Red Blood Cell Count 2.39 10^6/uL (4.20-5.40); Red Cell Dist. Width 14.5 % (11.5-14.5)
[2024-07-29 06:40] LABS: Blood Urea Nitrogen 22 mg/dl (7-17); Calcium 8.6 mg/dl (8.4-10.2); Carbon Dioxide 24 mmol/L (22-30); Chloride 104 mmol/L (98-107); Estimated Creatinine Clearance 53 ml/min; Glucose 97 mg/dl (70-99); Potassium 4.7 mmol/L (3.5-5.1); Sodium 140 mmol/L (135-145); eGFR > 60.00
[2024-07-29 07:10] VITALS: BP 127/76
[2024-07-29 07:44] LABS: Folate 6.6 ng/ml (2.76-20); Vitamin B12 980 pg/ml (239-931)
[2024-07-29] MEDS: OSCAL CAL 500 500 MG PO (08:20)
[2024-07-29] MEDS: ASPIRIN 325 MG PO (08:20)
[2024-07-29] MEDS: CELEBREX 100 MG PO (08:21)
[2024-07-29] MEDS: VITAMIN B-12 1000 MCG PO (08:21)
[2024-07-29] MEDS: ZESTRIL 20 MG PO (08:21)
[2024-07-29] MEDS: SENOKOT PO (09:07)
[2024-07-29 09:34] LABS: Hematocrit 24.6 % (37.0-47.0); Hemoglobin 7.9 g/dL (12.0-16.0); Mean Corp Hgb Conc. 32.1 g/dL (33.0-37.0); Mean Corpuscular Hgb 29.5 pg (27.0-31.0); Mean Corpuscular Volume 91.8 fL (81.0-99.0); Mean Platelet Volume 9.9 fL (7.4-10.4); Platelet Count 270 10^3/uL (130-400); Red Blood Cell Count 2.68 10^6/uL (4.20-5.40); Red Cell Dist. Width 14.8 % (11.5-14.5); White Blood Cell Count 8.1 10^3/uL (4.8-10.8)
[2024-07-29] MEDS: LOPRESSOR 12.5 MG PO (09:35)
--- NOTE | 2024-07-29 11:07 | PTCARENOTE ---
Patients HR this Am was in sinus tach in the 90's on tele and increased to 120's with activity. Dr. Chand made aware. Metoprolol 12.5mg po ordered and given. HR at rest is now in the 70's and with activity is in the 80-90's per tele monitor. BP
sitting was 130/70 HR 85 and standing Bp 126/67 HR 87.
[2024-07-29 11:15] VITALS: BP 126/67; BP 130/70; PULSE 85; PULSE 87
[2024-07-29 11:25] VITALS: BP 130/70
--- NOTE | 2024-07-29 12:06 | W.PN.HOSP.TC ---
Addendum entered and electronically signed by Jonathon Chand MD 07/30/24 15:40:
[id number]
Original Note:
Today's Communication/Plan
-
Continue WBAT B/L LEs on walker
PT/OT
ASA 325mg daily x 4 weeks for DVT ppx, then 81mg daily thereafter
Dressings to remain 2 weeks
Outpatient follow-up [address] Lindo's team
Monitor CBC in 2-3 days
started on bb - monitor HR, vitals outpatient
anemia work up outpatient
Assessment / Plan
Assessment / Plan
Gen-AAOx3, NAD
HEENT-NC, AT, anicteric, clear oral mm
Neck-supple
CV-reg, no M, +S1/S2
Lungs-clear B/L
Abd-soft, NT, ND
Ext-no edema
Musculoskeletal-no cyanosis, clubbing
Skin-warm and dry; Clean, dry and intact. Aquacel and gauze dressing right thigh in place
Neuro-grossly non-focal
Psych-calm, cooperative
Acute traumatic right proximal femur fracture
-Right hip gamma nail Jul 26 ([facility])
-received 2u pre-op
Continue WBAT B/L LEs on walker
PT/OT
ASA 325mg daily x 4 weeks for DVT ppx, then 81mg daily thereafter
Dressings to remain 2 weeks
Outpatient follow-up [address] Lindo's team
#Acute on chronic Anemia
#possible hemodilution v acute blood loss anemia
-monitor hgb post op - stable
-transfuse for hgb < 7
-monitor cbc in 2-3 days
-Should have anemia work up outpatient including if GI intervention is needed; transfusions inpatient preclude reliable results
#Orthostatic hypotension
most likely hypovolemic
IVF PRN
-resolved with resuscitation
-monitor outpatient
#Sinus tachycardia
-started on low dose bb
-should be monitored outpatient
-vitals/hr and bp improved and stable upon ambulation with BB
Osteoporosis -on weekly alendronate.
Essential hypertension -stable.
Hyperlipidemia -on simvastatin.
Full code
More than 30 minutes spent in discharge including
Final examination of the patient
Summarizing hospital stay
Instructions for continuing care to all relevant caregivers
Preparation of discharge records, prescriptions, and referral forms
Total time spent (35 in minutes):
Anticipated Discharge: Today
Subjective/Interval History
-
Date of Service: July 29, 2024
sinus tachy - chronic - will start bb
otherwise non toxic, in good spirits
Objective Data
-
Labs:
Laboratory Results
07/29/24 07/29/24
04:45 09:08
WBC 7.0 8.1
Hgb 7.2 L 7.9 L
Hct 22.2 L 24.6 L
Plt Count 229 270
Sodium 140
Potassium 4.7
Chloride 104
Carbon Dioxide 24
BUN 22 H
Creatinine 0.8
Glucose 97
Calcium 8.6
Vital Signs:
Vital Signs
Temp Pulse Resp BP Pulse Ox
98.4 F 85 16 130/70 97
07/29/24 11:25 07/29/24 11:25 07/29/24 11:25 07/29/24 11:25 07/29/24 11:25
I&O
07/28/24 07/29/24 07/30/24
06:59 06:59 06:59
Intake Total 2679 / 2679 1959 / 1959 120 / 120
Balance 2679 / 2679 120 / 120
Review of Systems
-
History Source: Patient
All other systems: Not reviewed unless documented
Physical Exam
-
General: Well Developed
HEENT: Normocephalic
Respiratory: Clear to Auscultation
Cardiac: Regular Rhythm
GI: Soft, Nontender and Nondistended
Musculoskeletal: Edema, Left Lower Extrem (Ecchymotic areas Steri-Strips MARIBEL stockings in place)
Psych: Calm
Data Reviewed
-
Total Time Spent with Patient (in minutes): 45
Diagnostic Radiology: Image personally visualized and interpreted and Report Reviewed by me
Labs: Labs Reviewed by me
--- NOTE | 2024-07-29 12:16 | CM ---
Addendum entered by Claudia Avalos 07/29/24 15:01:
Pts daughter and [facility] aware of transport time - 3PM
Original Note:
Case management following for discharge planning
Pt for discharge today
Spoke with Lidia at [facility] - can accept
Spoke with pt - aware
Spoke with pts daughter Rosina - aware of plan
Plan - transfer to [facility]
R - [phone]
F - [phone]
--- NOTE | 2024-07-29 12:31 | W.DS.TRANS ---
DC Summary - Buffing Machine Operator
-
Discharge Instructions:
Discharge Diagnosis/Procedures Acute traumatic right proximal femur fracture
Acute on chronic Anemia
Orthostatic hypotension
Sinus tachycardia
Diet Low Cholesterol,Low Fat
Activity As tolerated,With Walker
Blood Work cbc in 2-3 days to monitor hgb
anemia work up outpatient; received 2 units here
so lab values will not be accurate. stool is
brown and no obvious source of active bleeding
Instructions:
Stand-Alone Forms:
Changes to Home Medications: Yes
Discharge Medications:
DC Medications w/original date entered in [employer]
simvastatin 20 mg tablet 20 mg PO QPM High Cholesterol 11/09/18
coQ10 (ubiquinol) 200 mg capsule 200 mg PO DAILY Supplement 08/13/23
cyanocobalamin (vitamin B-12) 1,000 mcg tablet (Vitamin B-12) 1,000 mcg PO DAILY Supplement 08/13/23
omega 2-zbl-qth-fish oil 1,000 mg (120 mg-180 mg) capsule (Fish Oil) 1 cap PO BID Supplement 08/13/23
lisinopril 20 mg-hydrochlorothiazide 25 mg tablet 1 tab PO DAILY #0 tabs 09/07/23
calcium carbonate (Calcium 600) 600 mg PO BID Supplement 09/29/23
alendronate 70 mg tablet 70 mg PO TH OSTEOPEROSIS 07/23/24
aspirin 81 mg tablet,delayed release 81 mg PO QPM Blood Clot Prevention/Tx 07/23/24
vitamin E 268 mg (400 unit) capsule 268 mg PO QPM Supplement 07/23/24
aspirin 325 mg tablet 325 mg PO DAILY #60 tabs 07/28/24
celecoxib 100 mg capsule 100 mg PO BID PRN Pain #0 caps 07/29/24
metoprolol tartrate 25 mg tablet 12.5 mg (1/2 x 25 mg) PO BID #0 tabs 07/29/24
Home Medication Changes
aspirin 325 mg tablet 325 mg PO DAILY #60 tabs 07/28/24
celecoxib 100 mg capsule 100 mg PO BID PRN Pain #0 caps 07/29/24
metoprolol tartrate 25 mg tablet 12.5 mg (1/2 x 25 mg) PO BID #0 tabs 07/29/24
Pending Results: No
--- NOTE | 2024-07-29 14:54 | W.DS.TRANS ---
DC Summary - Tower Technician
-
Discharge Instructions:
Discharge Diagnosis/Procedures Acute traumatic right proximal femur fracture
Acute on chronic Anemia
Orthostatic hypotension
Sinus tachycardia
Diet Low Cholesterol,Low Fat
Activity As tolerated,With Walker
Blood Work cbc in 2-3 days to monitor hgb
anemia work up outpatient; received 2 units here
so lab values will not be accurate. stool is
brown and no obvious source of active bleeding
Instructions:
Stand-Alone Forms:
Changes to Home Medications: Yes
Discharge Medications:
DC Medications w/original date entered in [employer]
simvastatin 20 mg tablet 20 mg PO QPM High Cholesterol 11/09/18
coQ10 (ubiquinol) 200 mg capsule 200 mg PO DAILY Supplement 08/13/23
cyanocobalamin (vitamin B-12) 1,000 mcg tablet (Vitamin B-12) 1,000 mcg PO DAILY Supplement 08/13/23
omega 6-ygr-mnj-fish oil 1,000 mg (120 mg-180 mg) capsule (Fish Oil) 1 cap PO BID Supplement 08/13/23
calcium carbonate (Calcium 600) 600 mg PO BID Supplement 09/29/23
alendronate 70 mg tablet 70 mg PO TH OSTEOPEROSIS 07/23/24
aspirin 81 mg tablet,delayed release 81 mg PO QPM Blood Clot Prevention/Tx 07/23/24
vitamin E 268 mg (400 unit) capsule 268 mg PO QPM Supplement 07/23/24
aspirin 325 mg tablet 325 mg PO DAILY #60 tabs 07/28/24
celecoxib 100 mg capsule 100 mg PO BID PRN Pain #0 caps 07/29/24
lisinopril 20 mg tablet 20 mg PO DAILY #0 tabs 07/29/24
metoprolol tartrate 25 mg tablet 12.5 mg (1/2 x 25 mg) PO BID #0 tabs 07/29/24
Home Medication Changes
metoprolol tartrate 25 mg tablet 12.5 mg (1/2 x 25 mg) PO BID #0 tabs 07/29/24
Pending Results: No
== END 2024-07-29 15:05 | DRG 481 ==
LOC: 2 SOUTH 15:44
PROVIDERS: Hospitalist; ADMITTING PHYSICIAN Hospitalist; ATTENDING PHYSICIAN Internal Medicine; CONSULT PHYSICIAN Orthopaedic Surgery; EMERGENCY PHYSICIAN Emergency Medicine; FAMILY PHYSICIAN Internal Medicine
PROC: 0QS606Z Reposition Right Upper Femur with Intramedullary Internal Fixation Device, Open Approach (ICD-10-PCS; 2024-07-24)
PROC: 30233N1 Transfusion of Nonautologous Red Blood Cells into Peripheral Vein, Percutaneous Approach (ICD-10-PCS; 2024-07-24)
DX: M80.051A Age-related osteoporosis with current pathological fracture, right femur, initial encounter for fracture (principal); D62 Acute posthemorrhagic anemia; E78.00 Pure hypercholesterolemia, unspecified; I10 Essential (primary) hypertension; I95.1 Orthostatic hypotension; E86.1 Hypovolemia; R00.0 Tachycardia, unspecified; M17.11 Unilateral primary osteoarthritis, right knee; W10.8XXA Fall (on) (from) other stairs and steps, initial encounter; Y93.01 Activity, walking, marching and hiking; Y92.008 Other place in unspecified non-institutional (private) residence as the place of occurrence of the external cause; Z83.3 Family history of diabetes mellitus; Z82.49 Family history of ischemic heart disease and other diseases of the circulatory system; Z79.83 Long term (current) use of bisphosphonates
CPT/HCPCS: 73502; 73552; 76000; 80048; 80053; 82607; 82728; 82746; 83540; 83550; 85014; 85018; 85025; 85027; 86850; 86900; 86901; 86920; 93005; 96374; 97116; 97163; 97167; 97530; 97535; 99284; C1713; C1769; P9016

== ENCOUNTER → 2024-08-01 17:52 | Outpatient (REF) | payer OTHER, MEDICARE, SELFPAY ==
[2024-08-01 18:57] LABS: Hematocrit 25.3 % (37.0-47.0); Hemoglobin 7.7 g/dL (12.0-16.0); Mean Corp Hgb Conc. 30.4 g/dL (33.0-37.0); Mean Corpuscular Hgb 30.3 pg (27.0-31.0); Mean Corpuscular Volume 99.6 fL (81.0-99.0); Mean Platelet Volume 10.6 fL (7.4-10.4); Platelet Count 291 10^3/uL (130-400); Red Blood Cell Count 2.54 10^6/uL (4.20-5.40); Red Cell Dist. Width 16.5 % (11.5-14.5); White Blood Cell Count 8.3 10^3/uL (4.8-10.8)
[2024-08-01 19:05] LABS: ALT (SGPT) 16 U/L (0-35); AST (SGOT) 24 U/L (14-36); Albumin 3.3 g/dl (3.5-5.0); Alkaline Phosphatase 95 U/L (38-126); Blood Urea Nitrogen 27 mg/dl (7-17); Calcium 8.8 mg/dl (8.4-10.2); Carbon Dioxide 25 mmol/L (22-30); Chloride 105 mmol/L (98-107); Glucose 94 mg/dl (70-99); Magnesium 2.3 mg/dl (1.6-2.3); Potassium 4.8 mmol/L (3.5-5.1); Sodium 139 mmol/L (135-145); Total Bilirubin 1.3 mg/dl (0.2-1.3); Total Protein 5.7 g/dl (6.3-8.2); eGFR > 60.00
== END ==
LOC: OLABWHC 17:52
PROVIDERS: ATTENDING PHYSICIAN Family Medicine
DX: I10 Essential (primary) hypertension (principal); M12.20 Villonodular synovitis (pigmented), unspecified site
CPT/HCPCS: 36415; 80053; 83735; 85027

== ENCOUNTER → 2024-10-11 13:11 | Outpatient (REF) | payer MEDICARE, OTHER, SELFPAY ==
[2024-10-11 13:41] LABS: % Basophils 0.5 % (0-2); % Eosinophils 1.6 % (0-6); % Immature Granulocytes 0.1 % (0-0.5); % Lymphocytes 27.8 % (20.5-51.1); % Monocytes 9.3 % (1.7-9.3); % Neutrophils 60.7 % (42.2-75.2); Absolute Eosinophils 0.1 10^3/uL (0-0.7); Absolute Lymphocytes 2.3 10^3/uL (1.2-3.4); Absolute Monocytes 0.8 10^3/uL (0.1-0.6); Hematocrit 43.1 % (37.0-47.0); Hemoglobin 13.7 g/dL (12.0-16.0); Mean Corp Hgb Conc. 31.8 g/dL (33.0-37.0); Mean Corpuscular Hgb 28.7 pg (27.0-31.0); Mean Corpuscular Volume 90.4 fL (81.0-99.0); Mean Platelet Volume 10.1 fL (7.4-10.4); Nucleated Red Blood Cells % 0 %; Platelet Count 232 10^3/uL (130-400); Red Blood Cell Count 4.77 10^6/uL (4.20-5.40); Red Cell Dist. Width 13.1 % (11.5-14.5); Reticulocyte Count 0.5 % (0.4-2.8); White Blood Cell Count 8.2 10^3/uL (4.8-10.8)
[2024-10-11 15:31] LABS: ALT (SGPT) 16 U/L (0-35); AST (SGOT) 32 U/L (14-36); Alkaline Phosphatase 114 U/L (38-126); Blood Urea Nitrogen 23 mg/dl (7-17); Calcium 9.7 mg/dl (8.4-10.2); Carbon Dioxide 24 mmol/L (22-30); Chloride 105 mmol/L (98-107); Glucose 99 mg/dl (70-99); Iron 90 ug/dl (37-170); Potassium 5.1 mmol/L (3.5-5.1); Sodium 140 mmol/L (135-145); Total Bilirubin 0.4 mg/dl (0.2-1.3); eGFR > 60.00
== END ==
LOC: REG 13:11
PROVIDERS: ATTENDING PHYSICIAN Internal Medicine
DX: Z09 Encounter for follow-up examination after completed treatment for conditions other than malignant neoplasm (principal); Z87.81 Personal history of (healed) traumatic fracture; I10 Essential (primary) hypertension; R55 Syncope and collapse; E78.2 Mixed hyperlipidemia; D50.0 Iron deficiency anemia secondary to blood loss (chronic); H69.93 Unspecified Eustachian tube disorder, bilateral
CPT/HCPCS: 36415; 80053; 83540; 85025; 85045

== ENCOUNTER → 2024-11-22 13:22 | Outpatient (REF) | payer MEDICARE, OTHER, SELFPAY ==
[2024-11-22 15:23] LABS: ALT (SGPT) 15 U/L (0-35); AST (SGOT) 29 U/L (14-36); Albumin 4.7 g/dl (3.5-5.0); Alkaline Phosphatase 106 U/L (38-126); Blood Urea Nitrogen 28 mg/dl (7-17); Calcium 9.3 mg/dl (8.4-10.2); Carbon Dioxide 25 mmol/L (22-30); Chloride 101 mmol/L (98-107); Glucose 91 mg/dl (70-99); Potassium 4.7 mmol/L (3.5-5.1); Sodium 137 mmol/L (135-145); Total Bilirubin 0.4 mg/dl (0.2-1.3); Total Protein 7.8 g/dl (6.3-8.2); eGFR 58.02
[2024-11-22 15:34] LABS: Vitamin D, 25-OH*** 52.4 ng/mL (30-80)
== END ==
LOC: REG 13:22
PROVIDERS: ATTENDING PHYSICIAN Internal Medicine; FAMILY PHYSICIAN Internal Medicine
DX: M81.0 Age-related osteoporosis without current pathological fracture (principal); Z51.81 Encounter for therapeutic drug level monitoring
CPT/HCPCS: 36415; 80053; 82306

== ENCOUNTER 2024-12-01 12:04 | Outpatient (RCR) | payer MEDICARE, OTHER, SELFPAY | END 2024-12-01 23:59 | disposition home or self-care (01) | LOC: RPT 12:04 | PROVIDERS: ATTENDING PHYSICIAN Orthopaedic Surgery; FAMILY PHYSICIAN Internal Medicine | DX: R26.9 Unspecified abnormalities of gait and mobility (principal); Z87.81 Personal history of (healed) traumatic fracture | CPT/HCPCS: 97110; 97112; 97163; 97530 ==

== ENCOUNTER 2024-12-29 10:51 | Outpatient (RCR) | payer MEDICARE, OTHER, SELFPAY | END 2024-12-29 23:59 | disposition home or self-care (01) | LOC: RPT 10:51 | PROVIDERS: ATTENDING PHYSICIAN Orthopaedic Surgery; FAMILY PHYSICIAN Internal Medicine | DX: R26.9 Unspecified abnormalities of gait and mobility (principal); Z87.81 Personal history of (healed) traumatic fracture | CPT/HCPCS: 97010; 97112; 97530 ==

== ENCOUNTER → 2025-01-18 09:59 | Outpatient (REF) | payer MEDICARE, OTHER, SELFPAY ==
[2025-01-18 11:14] LABS: Urine Albumin Negative (Neg - Trace); Urine Bilirubin Negative (Negative); Urine Character Clear (Clear); Urine Color Yellow; Urine Glucose Negative (Negative); Urine Ketone Negative (Negative); Urine Leukocyte 2+ (Negative); Urine Nitrite Negative (Negative); Urine Occult Blood 2+ (Negative); Urine Urobilinogen Negative (Neg - 1+)
[2025-01-18 12:04] LABS: Urine Amorphous Seen
[2025-01-18 12:07] LABS: Urine Red Blood Cell 0-2 /HPF (0-2)
[2025-01-18 12:08] LABS: Urine Mucus Few
[2025-01-18 12:11] LABS: HDL Cholesterol 54 mg/dl; LDL Cholesterol, Calculated 135 mg/dl; Total Cholesterol 216 mg/dl (50-199); Triglyceride 135 mg/dl (10-149); Very Low Density Lipoprotein 27 mg/dl (0-30)
== END ==
LOC: REG 09:59
PROVIDERS: ATTENDING PHYSICIAN Internal Medicine
DX: I10 Essential (primary) hypertension (principal); E78.2 Mixed hyperlipidemia; M81.0 Age-related osteoporosis without current pathological fracture; S72.009S Fracture of unspecified part of neck of unspecified femur, sequela; Z00.00 Encounter for general adult medical examination without abnormal findings
CPT/HCPCS: 36415; 80061; 81003; 81015

== ENCOUNTER 2025-01-30 12:00 | Outpatient (RCR) | payer MEDICARE, OTHER, SELFPAY | END 2025-01-30 23:59 | disposition home or self-care (01) | LOC: RPT 12:00 | PROVIDERS: ATTENDING PHYSICIAN Orthopaedic Surgery; FAMILY PHYSICIAN Internal Medicine | DX: R26.9 Unspecified abnormalities of gait and mobility (principal); Z87.81 Personal history of (healed) traumatic fracture; M25.551 Pain in right hip | CPT/HCPCS: 97110; 97112; 97530 ==

== ENCOUNTER 2025-02-27 10:52 | Outpatient (RCR) | payer MEDICARE, OTHER, SELFPAY | END 2025-02-27 23:59 | disposition home or self-care (01) | LOC: RPT 10:52 | PROVIDERS: ATTENDING PHYSICIAN Orthopaedic Surgery; FAMILY PHYSICIAN Internal Medicine | DX: M25.551 Pain in right hip (principal); R26.9 Unspecified abnormalities of gait and mobility; Z87.81 Personal history of (healed) traumatic fracture; M54.50 Low back pain, unspecified | CPT/HCPCS: 97110; 97112; 97530 ==

== ENCOUNTER 2025-03-20 11:06 | Outpatient (RCR) | payer MEDICARE, OTHER, SELFPAY | END 2025-03-20 14:19 | disposition home or self-care (01) | LOC: RPT 11:06 | PROVIDERS: ATTENDING PHYSICIAN Orthopaedic Surgery; FAMILY PHYSICIAN Internal Medicine | DX: M25.551 Pain in right hip (principal); M54.50 Low back pain, unspecified; R26.9 Unspecified abnormalities of gait and mobility; Z87.81 Personal history of (healed) traumatic fracture | CPT/HCPCS: 97110; 97112; 97530 ==

== ENCOUNTER → 2025-03-24 12:52 | Outpatient (REF) | payer MEDICARE, OTHER, SELFPAY | LOC: MRI 12:52 | PROVIDERS: ATTENDING PHYSICIAN Physician Assistant Surgical; FAMILY PHYSICIAN Internal Medicine | DX: M25.551 Pain in right hip (principal) | CPT/HCPCS: 72148 ==